=== PATIENT | female | born 1970 | race Caucasian/White ===

== ENCOUNTER 2016-04-03 09:36 | Day surgery (SDC) | payer BC ==
[~2016-04-03] VITALS: Ht 167.6 cm; Wt 69.0 kg
[~2016-04-03 09:36] MED LIST: HYDROCODON-ACE1 EAC7 PO; MEDROL DOSEPAK4 MG PO; NAPROSYN500 MG PO; VALIUM5 MG PO
[2016-04-03 10:16] VITALS: BP 109/59
[2016-04-03 13:50] VITALS: BP 122/57
[2016-04-03 14:55] VITALS: BP 106/59
[2016-04-03] MEDS ORDERED: PERCOCET 5/31 TABLET PO (14:58)
== END 2016-04-03 15:15 | disposition home or self-care (01) ==
LOC: SDC 09:36
PROC: 0U5F4ZZ Destruction of Cul-de-sac, Percutaneous Endoscopic Approach (ICD-10-PCS; principal; 2016-04-03)
DX: R10.32 Left lower quadrant pain (principal); K66.0 Peritoneal adhesions (postprocedural) (postinfection); M48.00 Spinal stenosis, site unspecified
CPT/HCPCS: 84702; 86850; 86900; 86901; J0330; J0690; J1100; J2405; J2710; J3010; J7120